=== PATIENT | female | born 1970 | race Caucasian/White ===

== ENCOUNTER 2021-03-13 13:01 | Outpatient (CLI) | payer BC, SELFPAY ==
--- NOTE | ~2021-03-13 | CT_ITS ---
EXAMINATION: CT abdomen pelvis w con EXAM DATE: 03/13/2021 13:35 INDICATION: R10.9 - Unspecified abdominal pain. Right lower quadrant abdominal pain. Symptoms one day . TECHNIQUE: Spiral CT of the abdomen and pelvis was performed following intravenous injection of 100 m L Omnipaque 350. Axial, coronal and sagittal images of the abdomen and pelvis were reviewed. The do se-length product (DLP) for this examination was 262.98 mGy-cm. The exposure was tailored according to patient size (auto mA exposure control), and iterative reconstruction (ASIR) was used as additiona l dose reduction technique. Comparison is made to prior examination from 01/02/2015. FINDINGS: The liver, spleen, adrenal glands and pancreas are unremarkable. Gallbladder is unremarkab le. No biliary obstruction. Portal and splenic veins are patent. Kidneys enhance symmetrically. T here is no hydronephrosis. Calcifications in the pelvis are believed to be phleboliths. The uterus and ovaries are unremarkable, no adnexal mass. The bladder is unremarkable. There is no retroperito neil or pelvic lymphadenopathy. The appendix is normal. The stomach and small bowel are unremarkable. There is moderate amount of c olonic stool. No free intraperitoneal gas. The heart is normal in size. There are no pericardial or pleural effusions. The lung bases are unremarkable. The bones are unremarkable. IMPRESSION: 1. No acute intra-abdominal findings. Reviewed, dictated and finalized at location B. [facility] [facility]
[2021-03-13 15:03] LABS: Basophils Percent Auto 0.5 % (0.2-1.2); Eosinophils Percent Auto 0.5 % (0-4.4); Hematocrit 42.7 % (37.0-47.0); Hemoglobin 14.3 g/dL (12.0-15.0); Immature Granulocyte Absolute 0.02 K/mm3 (0.00-0.031); Immature Granulocyte Percent A 0.4 % (0-0.5); Lymphocytes Absolute Auto 0.69 K/mm3 (0.9-3.2); Lymphocytes Percent Auto 12.1 % (18.3-44.2); Mean Corpuscular HGB Conc 33.5 g/dl (32-36); Mean Corpuscular Hemoglobin 29.9 pg (26-34); Mean Corpuscular Volume 89.3 fl (80-100); Mean Platelet Volume 11.2 fl (7.4-10.4); Monocytes Absolute Auto 0.3 K/mm3 (0.1-0.6); Monocytes Percent Auto 5.6 % (2.6-8.5); Neutrophils Absolute Auto 4.6 K/mm3 (1.3-6.7); Neutrophils Percent Auto 80.9 % (45.5-73.1); Platelet Count Result 192 k/mm3 (150-375); Red Blood Count 4.78 M/mm3 (4.2-5.4); Red Cell Distribution Width 13.8 % (11.5-14.5); White Blood Count 5.7 K/mm3 (4.5-10.0)
[2021-03-13 15:15] LABS: Alanine Aminotransferase 13 U/L (4-35); Albumin Level 4.3 g/dL (3.5-5.1); Alkaline Phosphatase 74 U/L (38-126); Amylase 82 U/L (30-110); Anion Gap 8 mmol/L (8-16); Aspartate Amino Transferase 24 U/L (14-36); Bilirubin,Total 1.1 mg/dL (0.2-1.3); Blood Urea Nitrogen 7 mg/dL (7-17); Calcium 9.2 mg/dL (8.4-10.2); Carbon Dioxide 25 mmol/L (22-30); Chloride 104 mmol/L (98-107); Estimated Glomerular Filt Rate > 60; Glucose 101 mg/dL (65-110); Lipase 75 U/L (23-300); Potassium 4.1 mmol/L (3.4-5.0); Sodium 137 mmol/L (137-145)
== END 2021-03-13 13:02 | disposition home or self-care (01) ==
PROVIDERS: PCP Family Medicine; Visit Provider Family Medicine
DX: R10.9 Unspecified abdominal pain (principal)
CPT/HCPCS: 36415; 74177; 80053; 82150; 83690; 85025; Q9967

== ENCOUNTER 2021-05-30 13:50 | Emergency (ER) | payer BC, SELFPAY ==
--- NOTE | ~2021-05-30 | XR_ITS ---
XR chest 2V DATE: 05/30/2021 14:25 INDICATION: Cough, congestion TECHNIQUE: 2 views COMPARISON: None FINDINGS: Normal heart size. No hilar or mediastinal enlargement. No pulmonary infiltrate or consolid ation, pleural effusion or pulmonary vascular congestion or pneumothorax is evident. There is a radiopaque density in the lower outer right breast. IMPRESSION: No active cardiopulmonary disease Reviewed, dictated and finalized at location A. 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
[2021-05-30 13:56] VITALS: BP 137/93; PULSE 90; RESP 18; TEMP 37.3; O2SAT 100
--- NOTE | 2021-05-30 14:12 | ED.URI ---
HPI - URI/Sore Throat General Chief Complaint: Upper Respiratory Infection Stated Complaint: Fever,Cough,Sore Throat Time Seen by Provider: 05/30/21 14:12 Source: patient Mode of arrival: ambulatory Limitations: no limitations History of Present Illness HPI Narrative: 51 yo F presents with c/o cough, chest congestion, intermitent low grade fever for 4 days. Was seen at [facility] urgent care and told she had bronchitis. had negative covid and flu swab. Given tessalon pearle, albuterol and mucinex but has not started meds because she did not think they would help. Denies SOB. Reports some muscular pain from coughing. All systems reviewed and negative except as noted above. Related Data Allergies Allergy/AdvReac Type Severity Reaction Status Date / Time cephalexin Allergy Intermediate Diarrhea Verified 05/30/21 15:12 erythromycin base Allergy Intermediate Diarrhea Verified 05/30/21 15:12 amoxicillin Allergy Mild Hives Verified 05/30/21 15:12 cefaclor Allergy Mild Hives Verified 05/30/21 15:12 oseltamivir Allergy Mild nausea Verified 05/30/21 15:12 Sulfa (Sulfonamide Allergy Mild Hives Verified 05/30/21 15:12 Antibiotics) azithromycin AdvReac Intermediate SEVERE Verified 05/30/21 15:12 ABDOMINAL ISSUES CEPHALEXIN MONOHYDRATE AdvReac Intermediate Diarrhea Uncoded 05/30/21 15:12 Review of Systems Review of Systems: CONSTITUTIONAL: Reports low grade fever. Denies chills, or sweats. EYES: Denies visual changes, redness, or discharge. ENT: Denies rhinorrhea, congestion, sore throat, or otalgia. CARDIOVASCULAR: Denies chest pain, palpitations, or edema. RESPIRATORY: Reports cough. Denies dyspnea. GASTROINTESTINAL: Denies abdominal pain, nausea, vomiting, or diarrhea. GENITOURINARY: Denies dysuria or hematuria. SKIN: Denies rash or itching. MUSCULOSKELETAL: Denies back pain, joint pain, or myalgia. NEUROLOGIC: Denies headache, numbness, or weakness. PSYCHIATRIC: Denies anxiety or depression. All other systems reviewed are negative, except as documented in HPI. 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 There is no relevant family history pertinent to the presenting complaint. Exam Narrative: GENERAL: This is a well-nourished, well-developed patient, in no apparent distress. HEAD: normocephalic, atraumatic. EYES: PERRL. Sclera clear/white. Vision is grossly intact. EARS: External ears normal, auditory canals clear and without drainage, TMs normal without perforation. Hearing grossly intact. NOSE: External nose normal with no obvious nasal discharge, nares without redness, no rhinorrhea. THROAT: Mucous membranes moist, posterior pharynx clear. NECK: Neck supple, non-tender without lymphadenopathy, masses or thyromegaly. CARDIOVASCULAR: Regular rate and rhythm without murmurs, gallops, or rubs. RESPIRATORY: Rhonchi to lower lung [place] on auscultation. Breath sounds equal bilaterally. No wheezes, rales, or rhonchi. GASTROINTESTINAL: Abdomen soft, non-tender, nondistended. Bowel soun
== END 2021-05-30 14:39 | disposition home or self-care (01) ==
PROVIDERS: Emergency Provider Nurse Practitioner Family; PCP Family Medicine
DX: J06.9 Acute upper respiratory infection, unspecified (principal)
CPT/HCPCS: 71046; 87081; 87880; 99213; G0463

== ENCOUNTER 2021-12-17 15:22 | Emergency (ER) | payer BC, SELFPAY ==
[2021-12-17 15:33] VITALS: BP 129/82; PULSE 83; RESP 16; TEMP 37.3; O2SAT 98
--- NOTE | 2021-12-17 16:07 | ED.SKABFB ---
HPI - Skin/Abscess/Foreign Bdy General Chief complaint: Skin/Abscess/Foreign Body Stated complaint: Rash Time Seen by Provider: 12/17/21 16:00 History of Present Illness HPI narrative: Hortencia Spencer is a 51 yo female with no PMH who comes to [facility] with complaints of rash on her face and left torso after pulling weeds yesterday. She states she is very allergic to different yard plants but did not realize that she was in something like poison lavinia until after she dog pulled the plant she tried to wash her hands and tools that she used but she still is breaking out into a rash and she states it is spreading Related Data Home Medications Medication Instructions Recorded Confirmed estradiol 0.0375 mg/24 hr 0.375 mg DIRECTED 12/17/21 12/17/21 semiweekly transdermal patch progesterone micronized 100 mg 100 mg HS 12/17/21 12/17/21 capsule Allergies Allergy/AdvReac Type Severity Reaction Status Date / Time cephalexin Allergy Intermediate Diarrhea Verified 12/17/21 15:36 erythromycin base Allergy Intermediate Diarrhea Verified 12/17/21 15:36 amoxicillin Allergy Mild Hives Verified 12/17/21 15:36 cefaclor Allergy Mild Hives Verified 12/17/21 15:36 oseltamivir Allergy Mild nausea Verified 12/17/21 15:36 Sulfa (Sulfonamide Allergy Mild Hives Verified 12/17/21 15:36 Antibiotics) gluten Allergy Nausea and Verified 12/17/21 16:11 Vomiting azithromycin AdvReac Intermediate SEVERE Verified 12/17/21 15:36 ABDOMINAL ISSUES CEPHALEXIN MONOHYDRATE AdvReac Intermediate Diarrhea Uncoded 12/17/21 15:36 Review of Systems Review of Systems: CONSTITUTIONAL: Denies fever, chills, sweats. EYES: Denies visual changes, redness, discharge. ENT: Denies rhinorrhea, congestion, sore throat, otalgia. CARDIOVASCULAR: Denies chest pain, palpitations, edema. RESPIRATORY: Denies dyspnea, wheezing, cough GASTROINTESTINAL: Denies abdominal pain, nausea, vomiting, diarrhea. GENITOURINARY: Denies dysuria, hematuria, abnormal discharge SKIN: Contact dermatitis to left face and left torso NEUROLOGIC: Denies numbness, or focal weakness. PSYCHIATRIC: Denies anxiety or depression. 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 There is no relevant family history pertinent to the presenting complaint. Exam Narrative: GENERAL: This is a well-nourished, well-developed patient, in mild distress. HEAD: normocephalic, atraumatic. EYES: Sclera clear/white. Vision is grossly intact. EARS: External ears normal, Hearing grossly intact. NOSE: External nose normal without nasal discharge, nares without redness, no rhinorrhea. THROAT: Mucous membranes moist, NECK: Neck supple, non-tender CARDIOVASCULAR: Regular rate and rhythm without murmurs, gallops, or rubs. RESPIRATORY: Clear to auscultation. Breath sounds equal bilaterally. No wheezes, rales, or rhonchi. GASTROINTESTINAL: not done SKIN: warm, intact with red papular rash on face neck and left torso with spots on her arms NEURO: awake, alelaurie
[2021-12-17] MEDS: methylPREDNISolone SOD SUCC 125 MG VIAL IM (16:24)
== END 2021-12-17 16:58 | disposition home or self-care (01) ==
PROVIDERS: Emergency Provider Nurse Practitioner; PCP Family Medicine
DX: L25.9 Unspecified contact dermatitis, unspecified cause (principal)
CPT/HCPCS: 96372; 99213; G0463; J2930

== ENCOUNTER 2022-04-21 11:05 | Emergency (ER) | payer BC, SELFPAY ==
[2022-04-21 11:31] VITALS: BP 131/90; PULSE 86; RESP 18; TEMP 36.4; O2SAT 100
--- NOTE | 2022-04-21 11:35 | ED.URI ---
HPI - URI/Sore Throat General Chief Complaint: Upper Respiratory Infection Stated Complaint: Headache Time Seen by Provider: 04/21/22 11:24 Source: patient Mode of arrival: ambulatory Limitations: no limitations History of Present Illness HPI Narrative: Patient presents today complaining of sinus pressure and headache since yesterday with nasal congestion. Denies sore throat, fever, vision change, dizziness, photophobia, or any additional symptoms. She currently rates her headache 5/10 and has been taking Aleve, Benadryl, and NyQuil without relief. It is states she does have history of migraines, but these are typically located in the frontal area and she can usually get them to go away with the previously mentioned medications and rest. Her current headache is located in the crown of her head. 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 Related Data Allergies Allergy/AdvReac Type Severity Reaction Status Date / Time azithromycin AdvReac Intermediate SEVERE Verified 04/21/22 11:16 ABDOMINAL ISSUES cephalexin AdvReac Intermediate Diarrhea Verified 04/21/22 11:16 erythromycin base AdvReac Intermediate Diarrhea Verified 04/21/22 11:16 gluten AdvReac Intermediate Nausea and Verified 04/21/22 11:16 Vomiting amoxicillin AdvReac Mild Hives Verified 04/21/22 11:16 cefaclor AdvReac Mild Hives Verified 04/21/22 11:16 oseltamivir AdvReac Mild nausea Verified 04/21/22 11:16 Sulfa (Sulfonamide AdvReac Mild Hives Verified 04/21/22 11:16 Antibiotics) CEPHALEXIN MONOHYDRATE AdvReac Intermediate Diarrhea Uncoded 04/21/22 11:16 Review of Systems Review of Systems: CONSTITUTIONAL: Denies body aches, fever, chills, or sweats. EYES: Denies visual changes, redness, or discharge. ENT: Denies rhinorrhea, sore throat, or otalgia.+ congestion CARDIOVASCULAR: Denies chest pain, palpitations, or edema. RESPIRATORY: Denies cough or dyspnea. GASTROINTESTINAL: Denies abdominal pain, nausea, vomiting, or diarrhea. GENITOURINARY: Denies dysuria or hematuria. SKIN: Denies rash, itching, or wounds. MUSCULOSKELETAL: Denies back pain, joint pain, or myalgia. NEUROLOGIC: Denies numbness, tingling, or weakness.+ headache PSYCH: Denies depression or anxiety. 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 Please see nursing chart for further information. There is no relevant family history pertinent to the presenting complaint Exam Narrative: GENERAL: Mildly ill-appearing, well-nourished, and in no acute distress. HEAD: Normocephalic, atraumatic. EYES: EOMI. PERRL. No redness or drainage. Conjunctivae normal. ENT: Mucous membranes pink and moist. Nares mildly congested. No rhinorrhea. TMs normal bilaterally. Throat normal. Uvula midline. NECK: Normal AROM. Supple. No lymphadenopathy. CHEST: No respiratory distress. Clear to auscultation.
== END 2022-04-21 11:53 | disposition home or self-care (01) ==
PROVIDERS: Emergency Provider Nurse Practitioner
DX: B34.9 Viral infection, unspecified (principal); Z20.822 Contact with and (suspected) exposure to COVID-19; F41.9 Anxiety disorder, unspecified
CPT/HCPCS: 87426; 87804; 99213; C9803; G0463

== ENCOUNTER 2022-12-14 16:50 | Emergency (ER) | payer BC, SELFPAY ==
[2022-12-14 17:00] VITALS: BP 144/94; PULSE 85; RESP 18; TEMP 37.2; O2SAT 99
--- NOTE | 2022-12-14 17:26 | ED.URI ---
HPI - URI/Sore Throat General Chief Complaint: Upper Respiratory Infection Stated Complaint: Sore Throat and Cough Time Seen by Provider: 12/14/22 16:52 Source: patient Mode of arrival: ambulatory Limitations: no limitations History of Present Illness HPI Narrative: 52-year-old female presents to [facility] with complaints of sore throat, cough, nasal congestion and sinus pressure for the past 7-10 days. Patient reports that she feels that her nonproductive cough has been worsening over the past 2 days. Patient has been taking [id number] DayQuil and NyQuil with minimal relief. 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 Patient denies fever, body aches, chills, nausea, vomiting or diarrhea. Patient is not a smoker. Patient denies recent travel. MD elicited complaint: cough and nasal congestion Onset (ago): day(s) (7-10) Able to tolerate fluids by mouth: Yes Exacerbating factors: nothing Relieving factors: nothing Treatments prior to arrival: cold medicine Related Data Home Medications Medication Instructions Recorded Confirmed escitalopram oxalate 10 mg tablet 10 mg PO DAILY 10/21/22 12/14/22 Allergies Allergy/AdvReac Type Severity Reaction Status Date / Time azithromycin AdvReac Intermediate SEVERE Verified 12/14/22 17:05 ABDOMINAL ISSUES cephalexin AdvReac Intermediate Diarrhea Verified 12/14/22 17:05 erythromycin base AdvReac Intermediate Diarrhea Verified 12/14/22 17:05 gluten AdvReac Intermediate Nausea and Verified 12/14/22 17:05 Vomiting amoxicillin AdvReac Mild Hives Verified 12/14/22 17:05 cefaclor AdvReac Mild Hives Verified 12/14/22 17:05 oseltamivir AdvReac Mild nausea Verified 12/14/22 17:05 Sulfa (Sulfonamide AdvReac Mild Hives Verified 12/14/22 17:05 Antibiotics) CEPHALEXIN MONOHYDRATE AdvReac Intermediate Diarrhea Uncoded 12/14/22 17:05 Review of Systems Constitutional: Constitutional: Denies chills, Denies fatigue, Denies fever(s) and Denies weakness ENT: Denies vertigo, Denies dizziness, Denies epistaxis, Reports nasal congestion and Denies sore throat Cardiovascular: Cardiovascular: Denies chest pain Respiratory: Respiratory: Reports cough, Denies dyspnea and Denies wheezing Gastrointestinal: Gastrointestinal: Denies diarrhea, Denies nausea and Denies vomiting Integumentary/Breasts: Skin/Breast: Denies pruritus, Denies erythema and Denies rash Neurologic: Denies dizziness, Denies syncope and Denies headache(s) [facility] Past Medical History Medical History Anxiety Seasonal allergies UTI (urinary tract infection) Surgical History Surgical History History of lumpectomy of left breast Family History Family History Father Hypertension Sibling Asthma Mother Family history of elevated blood lipids Family history of kidney disease Social History Social History Smoking status: Never smoker Second hand tobacco smoke exposure: No Alcohol intake: never Substance use: never Substance use type: does not use Lack of Transportation: No Lack of Food: Never True Current Housing: I Have Housing Concerned About Future Housing: No Difficulty Paying Gas/Electric Bills: No Difficulty Paying for Meds: No Currently Unemployed: No Education: Master's Degree or Higher Difficulty w/ Childcare or Family Care: No Living arrangements: with family 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 There is no relevant family histor
== END 2022-12-14 17:34 | disposition home or self-care (01) ==
PROVIDERS: Emergency Provider Nurse Practitioner Family; PCP Emergency Medicine
DX: J06.9 Acute upper respiratory infection, unspecified (principal); Z20.822 Contact with and (suspected) exposure to COVID-19; F41.9 Anxiety disorder, unspecified
CPT/HCPCS: 87081; 87426; 87880; 99213; C9803; G0463

== ENCOUNTER 2023-05-18 18:27 | Emergency (ER) | payer BC, SELFPAY ==
--- NOTE | 2023-05-18 18:34 | ED.SKABFB ---
HPI - Skin/Abscess/Foreign Bdy General Chief complaint: Skin/Abscess/Foreign Body Stated complaint: Arm and Back Rash Time Seen by Provider: 05/18/23 18:35 Source: patient Mode of arrival: ambulatory Limitations: no limitations History of Present Illness HPI narrative: Setphanie is a 53-year-old female patient presenting to the clinic today with complaints of a rash on the right side under the right breast, axilla, and right back. She reports rash has been there for 3-4 weeks however has seemed gotten worse over the last 2 days. Denies any fever or chills. States that the rash is irritated and painful. No drainage from the rash Related Data Home Medications Medication Instructions Recorded Confirmed escitalopram oxalate 10 mg tablet 10 mg PO DAILY 10/21/22 05/18/23 Allergies Allergy/AdvReac Type Severity Reaction Status Date / Time azithromycin AdvReac Intermediate SEVERE Verified 05/18/23 18:36 ABDOMINAL ISSUES cephalexin AdvReac Intermediate Diarrhea Verified 05/18/23 18:36 erythromycin base AdvReac Intermediate Diarrhea Verified 05/18/23 18:36 gluten AdvReac Intermediate Nausea and Verified 05/18/23 18:36 Vomiting amoxicillin AdvReac Mild Hives Verified 05/18/23 18:36 cefaclor AdvReac Mild Hives Verified 05/18/23 18:36 oseltamivir AdvReac Mild nausea Verified 05/18/23 18:36 Sulfa (Sulfonamide AdvReac Mild Hives Verified 05/18/23 18:36 Antibiotics) CEPHALEXIN MONOHYDRATE AdvReac Intermediate Diarrhea Uncoded 05/18/23 18:37 Review of Systems Review of Systems: Pertinent positives per HPI. Patient denies any fever, chills,headache, visual changes, dizziness, cough, shortness of breath, chest pain, palpitations, nausea, vomiting, diarrhea, constipation, abdominal pain, or any urinary issues. [facility] Past Medical History Medical History Anxiety Seasonal allergies UTI (urinary tract infection) Surgical History Surgical History History of lumpectomy of left breast Family History Family History Father Hypertension Sibling Asthma Mother Family history of elevated blood lipids Family history of kidney disease Social History Social History Smoking status: Never smoker Second hand tobacco smoke exposure: No Alcohol intake: never Substance use: never Substance use type: does not use Lack of Transportation: No Lack of Food: Never True Current Housing: I Have Housing Concerned About Future Housing: No Difficulty Paying Gas/Electric Bills: No Difficulty Paying for Meds: No Currently Unemployed: No Education: Master's Degree or Higher Difficulty w/ Childcare or Family Care: No Living arrangements: with family 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 There is no relevant family history pertinent to the patient complaint. Exam Narrative: General: Well-developed, well nourished, in no apparent distress Head: Normocephalic, atraumatic. Cardio: Regular rate and rhythm, s1 and s2 normal, no murmur appreciated. Resp: Clear to auscultation bilaterally, no rhonchi, rales, wheezing or rubs. Integumentary: [place], warm, and dry, intact without lesion, red raised erythemic base rash with mild tenderness to palpation, no obvious vesicular lesions present Course Course Emergency Course: Portions of this record may have been created with voice recognition software. Level of Care: Express Care Visit Vital Signs Vital signs: Vital signs reviewe
[2023-05-18 18:35] VITALS: BP 143/91; PULSE 95; RESP 16; TEMP 36.6; O2SAT 99
== END 2023-05-18 18:58 | disposition home or self-care (01) ==
PROVIDERS: Emergency Provider Nurse Practitioner Family; PCP Emergency Medicine
DX: L30.9 Dermatitis, unspecified (principal); F41.9 Anxiety disorder, unspecified
CPT/HCPCS: 99213; G0463

== ENCOUNTER 2024-02-22 13:26 | Emergency (ER) | payer BC, SELFPAY ==
--- NOTE | ~2024-02-22 | XR_ITS ---
XR chest 2V Ordering provider: Brianna Jeffery APRN History: 53 years Female with . cough . Comparison: None. FINDINGS: MEDIASTINUM: The cardiac silhouette is not enlarged. Prominent left hilum which may be due to enlarge d lymph nodes. LUNGS: No effusions or pneumothorax. Prominent bronchovascular markings with possible minimal infiltr ate in the lower lobes. OTHER: No free air under the diaphragm. IMPRESSION: Prominent bronchovascular markings with possible minimal infiltrate in the lower lobes which may isabel latonia early pneumonia. Follow-up is advised. Reviewed, dictated and finalized at location A. TRIMMER IMPRESSION: Prominent bronchovascular markings with possible minimal infiltrate in the lowe r lobes which may indicate early pneumonia. Follow-up is advised.
[2024-02-22 13:32] VITALS: BP 123/84; PULSE 77; RESP 16; TEMP 36.2; O2SAT 98
--- NOTE | 2024-02-22 13:44 | ED.URI ---
HPI - URI/Sore Throat General Chief Complaint: Upper Respiratory Infection Stated Complaint: cough Time Seen by Provider: 02/22/24 14:05 Source: patient, RN notes reviewed and old records reviewed Mode of arrival: ambulatory Limitations: no limitations History of Present Illness HPI Narrative: patient treated last month for pneumonia presents with complaints of cough that improved with antibiotic therapy, but over the past couple of weeks has worsened again. She reports occasional wheezing, shortness of breath with activity. Cough has become productive again. She reports intermittent fevers, sore throat with cough. She is also concerned about a laceration to the right 3rd finger. Reports that she cut the tip of her finger on a glass just prior to arrival. No active bleeding on arrival. Reports tetanus is up-to-date. Denies other injury or trauma Related Data Home Medications Medication Instructions Recorded Confirmed escitalopram oxalate 10 mg tablet 10 mg PO DAILY 10/21/22 02/22/24 Allergies Allergy/AdvReac Type Severity Reaction Status Date / Time azithromycin AdvReac Intermediate SEVERE Verified 02/22/24 13:35 ABDOMINAL ISSUES cephalexin AdvReac Intermediate Diarrhea Verified 02/22/24 13:35 erythromycin base AdvReac Intermediate Diarrhea Verified 02/22/24 13:35 gluten AdvReac Intermediate Nausea and Verified 02/22/24 13:35 Vomiting amoxicillin AdvReac Mild Hives Verified 02/22/24 13:35 cefaclor AdvReac Mild Hives Verified 02/22/24 13:35 oseltamivir AdvReac Mild nausea Verified 02/22/24 13:35 Sulfa (Sulfonamide AdvReac Mild Hives Verified 02/22/24 13:35 Antibiotics) CEPHALEXIN MONOHYDRATE AdvReac Intermediate Diarrhea Uncoded 02/22/24 13:35 Review of Systems Review of Systems: All systems reviewed & are unremarkable except as noted in HPI and below Constitutional: Constitutional: Reports as per HPI, Reports no additional constitutional complaints and Reports lethargy ENT: Reports system reviewed and no additional complaints, except as documented Cardiovascular: Cardiovascular: Reports no additional cardiovascular complaints Respiratory: Respiratory: Reports no additional respiratory complaints, Reports change in phlegm color, Reports chest congestion, Reports cough, Reports excessive phlegm production, Reports dyspnea on exertion and Reports wheezing Gastrointestinal: Gastrointestinal: Reports no additional gastrointestinal complaints Integumentary/Breasts: Skin/Breast: Reports system reviewed and no additional complaints, except as docu, Reports as per HPI and Reports wounds [facility] Past Medical History Medical History Anxiety Seasonal allergies UTI (urinary tract infection) Surgical History Surgical History History of lumpectomy of left breast Family History Family History Father Hypertension Sibling Asthma Mother Family history of elevated blood lipids Family history of kidney disease Social History Social History Smoking status: Never smoker Second hand tobacco smoke exposure: No Alcohol intake: never Substance use: never Substance use type: does not use Lack of Transportation: No Lack of Food: Never True Current Housing: I Have Housing Concerned About Future Housing: No Difficulty Paying Gas/Electric Bills: No Difficulty Paying for Meds: No Currently Unemployed: No Education: Master's Degree or Higher Difficulty w/ Childcare or Family Care: No Living arrangements: with family 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 There is no relevant family history pertinent to the patient complaint. Exam Const: General: cooperative, no acute distress, alert and awake Orientation/consciousness: oriented to person, oriented to place and oriented to time HENMT: Head: normal to inspection Mouth: Yes moist mucous membranes Resp: Effort & Inspection: normal respiratory effort and able to speak in complete sentences Auscultation: clear to auscultation bilaterally, no crackles, no rales, no rhonchi, no wheezes and diminished lung sounds bilateral in the lower lung [place] Cardio: Palpation: normal PMI Rate: regular rate Rhythm: regular rhythm Heart sounds: S1 normal heart sound present and S2 normal heart sound present Skin: Trauma: laceration right distal 3rd finger linear and superficial Neuro: General: oriented to person, oriented to place and oriented to time Cranial nerves: Yes CN's II-XII intact bilaterally Psych: Appearance: grossly normal Thought process: Normal thought process present Insight: Good insight present (Psych) Judgement: Good judgement present (Psych) Course Course Level of Care: Express Care Visit Vital Signs Vital signs: Vital Signs Temperature 97.2 F L 02/22/24 13:32 Pulse Rate 77 02/22/24 13:32 Respiratory Rate 16 02/22/24 13:32 Blood Pressure 123/84 02/22/24 13:32 Pulse Oximetry 98 02/22/24 13:32 Oxygen Delivery Room Air 02/22/24 13:32 Temperature 97.2 F L 02/22/24 13:32 Pulse Rate 77 02/22/24 13:32 Respiratory Rate 16 02/22/24 13:32 Blood Pressure 123/84 02/22/24 13:32 Pulse Oximetry 98 02/22/24 13:32 Oxygen Delivery Room Air 02/22/24 13:32 Reviewed Procedures Laceration Laceration 1: Date: 02/22/24 Time: 14:30 Site: hand Side (If applicable): right Size (cm): 1 Description: linear Depth: simple, single layer Pre-repair: irrigated ====== Skin Level ====== Skin layer closed with: dermabond and steri strips ====== Subcutaneous Layer ====== ====== Muscle Layer ====== ====== Tendon Layer ====== MDM - URI/Sore Throat MDM Narrative Medical decision making narrative: patient with multiple allergies presents with pneumonia. She did not have chest x-ray initially, so unsure if it is resolving, or worsening as patient feels it is. Would prefer to try azithromycin, but patient reports that she is severely intolerant of this. Will do another 7 days of doxycycline. Add steroids, bronchodilators. Very superficial laceration to right 3rd finger repaired with Steri-Strips and wound adhesive. No complications. Follow with primary care provider. Discharge instructions reviewed with patient, as well as provided in writing per nursing staff. The instructions also include specific and strict return/GO TO THE ER as well as f/u information. All questions have been answered, and the patient deny any further questions with discharge and discharge plan. Some parts of this dictation were generated by voice recognition software and may contain typographical and/or grammatical inaccuracies. Differential Diagnosis Differential diagnosis: Likely upper respiratory infection, otitis media, viral infection, bronchitis, influenza and pharyngitis Medical Records Attestation: I reviewed the patient's medical records. Imaging Data Attestation: I personally reviewed and interpreted this imaging study as follows: My impression: BLL pna Radiologist's impression: [facility] [address] [place] [id number] XRay Report Signed Patient: Hortencia Spencer : 1970 MR#: [id number] Age: 53 Acct:[id number] Loc: [facility] ADM Date: 02/22/24Attending Dr: Ordering Physician: Brianna Jeffery FNP Date of Service: 02/22/24 Procedure(s): XR chest 2V Accession Number(s): [id number] cc: Brianna Jeffery FNP; Gerardo Jc MD~ XR chest 2V Ordering provider: Brianna Jeffery APRN History: 53 years Female with . cough . Comparison: None. FINDINGS: MEDIASTINUM: The cardiac silhouette is not enlarged. Prominent left hilum which may be due to enlarged lymph nodes. LUNGS: No effusions or pneumothorax. Prominent bronchovascular markings with possible minimal infiltrate in the lower lobes. OTHER: No free air under the diaphragm. IMPRESSION: Prominent bronchovascular markings with possible minimal infiltrate in the lower lobes which may indicate early pneumonia. Follow-up is advised. Reviewed, dictated and finalized at location A. T ADMINISTRATIVE ASSISTANT Dictated By: Parish Stoner MD 02/22/24 0765 Signed By: <Electronically signed by Parish Stoner MD in OV> Discharge Plan Discharge Clinical Impression: Laceration Pneumonia Qualifiers: Pneumonia type: due to unspecified organism Laterality: bilateral Lung location: lower lobe of lung Qualified Code(s): J18.9 - Pneumonia, unspecified organism Patient Disposition: Home, Self-Care Condition: Stable Instructions: Antibiotic Form, Skin Adhesive Care (ED), Pneumonia (ED), Steristrips (ED) Additional Instructions: Follow-up with primary care provider. Emergency department for new or worsening symptoms Patient Language: Yakut Prescriptions: New doxycycline hyclate 100 mg tablet 100 mg PO BID Qty: 14 0RF prednisone 50 mg tablet 50 mg PO DAILY Qty: 5 0RF albuterol sulfate [Ventolin HFA] 90 mcg/actuation HFA aerosol inhaler 2 puff inhalation QID PRN (Reason: shortness of breath or wheezing) Qty: 8.5 0RF No Action escitalopram oxalate 10 mg tablet 10 mg PO DAILY Follow-up/Referrals: Gerardo Jc MD [Primary Care Provider] - 2 Weeks Stand Alone Forms: Work/School Release IP Time of Disposition: 14:30
[2024-02-22 14:17] LABS: EDSTREPNEGPOS1 Negative (Negative)
[2024-02-22 14:18] LABS: EDCOVIDSCREEN Negative (Negative); EDINFLUASCREEN Negative (Negative); EDINFLUBSCREEN Negative (Negative)
== END 2024-02-22 14:31 | disposition home or self-care (01) ==
PROVIDERS: Emergency Provider Nurse Practitioner Family; PCP Emergency Medicine
DX: S61.212A Laceration without foreign body of right middle finger without damage to nail, initial encounter (principal); W25.XXXA Contact with sharp glass, initial encounter; J18.9 Pneumonia, unspecified organism; Z20.822 Contact with and (suspected) exposure to COVID-19; F41.9 Anxiety disorder, unspecified
CPT/HCPCS: 12001; 71046; 87081; 87426; 87804; 87880; 99213; G0463

== ENCOUNTER 2024-07-28 13:15 | Emergency (ER) | payer BC, SELFPAY ==
--- NOTE | 2024-07-28 13:20 | ED_ITS ---
HPI - URI/Sore Throat General Chief Complaint: Upper Respiratory Infection Stated Complaint: Sinus Infection History of Present Illness HPI Narrative: This is a 54-year-old female patient presents to the [facility] with complaints of maxillary sinus symptoms started 10 days ago have progressed to sore throat stuffy nose and nonproductive cough. Patient reports a history of multiple allergies. She states that whenever she gets infections like this she ends up with bronchitis that causes coughing for months. Patient developed pneumonia in January as a result. She has multiple allergies and usually is prescribed doxycycline when these symptoms progressed longer than 10 days. Patient denies fever chills. She states axillary pain as well as pain to her upper teeth. Onset (ago): day(s) (10) Consistency: constant Severity: moderate Pain scale (0-10): 4 Description of mucous: green and purulent Able to tolerate fluids by mouth: Yes Exacerbating factors: exertion and leaning forward Relieving factors: OTC cold medicine and nasal spray Context: sick contacts Associated symptoms: rhinorrhea, nasal congestion, sore throat, cough and other ( Upper dentalgia) Related Data Home Medications ?Medication ?Instructions ?Recorded ?Confirmed ?Last Taken ?Type escitalopram oxalate 10 mg tablet 10 mg PO DAILY 10/21/22 02/22/24 Unknown History Allergies Allergy/AdvReac Type Severity Reaction Status Date / Time amoxicillin Allergy Mild Hives Verified 07/28/24 13:52 cefaclor Allergy Mild Hives Verified 07/28/24 13:52 Sulfa (Sulfonamide Allergy Mild Hives Verified 07/28/24 13:52 Antibiotics) azithromycin AdvReac Intermediate SEVERE Verified 07/28/24 13:52 ABDOMINAL ISSUES cephalexin AdvReac Intermediate Diarrhea Verified 07/28/24 13:52 erythromycin base AdvReac Intermediate Diarrhea Verified 07/28/24 13:52 gluten AdvReac Intermediate Nausea and Verified 07/28/24 13:52 Vomiting oseltamivir AdvReac Mild nausea Verified 07/28/24 13:52 Review of Systems Review of Systems: All systems reviewed & are unremarkable except as noted in HPI and below PMFSH Past Medical History Medical History Anxiety UTI (urinary tract infection) Seasonal allergies Surgical History Surgical History History of lumpectomy of left breast Family History Family History Father Hypertension Sibling Asthma Mother Family history of elevated blood lipids Family history of kidney disease Social History Social History Smoking status: Never smoker Second hand tobacco smoke exposure: No Alcohol intake: never Substance use: never Substance use type: does not use Lack of Transportation: No Lack of Food: Never True Current Housing: I Have Housing Concerned About Future Housing: No Difficulty Paying Gas/Electric Bills: No Difficulty Paying for Meds: No Currently Unemployed: No Education: Master's Degree or Higher Difficulty w/ Childcare or Family Care: No Living arrangements: with family 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 HEAD: Normocephalic, atraumatic. ENT:? Mucous membranes moist. no gum erythema or swelling, posterior nasal drip noted, maxillary sinus tenderness to palpation no frontal or ethmoid sinus tenderness CHEST: Clear to auscultation.? No respiratory distress. nonproductive cough present HEART: Regular rate and rhythm. ? Normal peripheral pulses. SKIN: Warm dry normal color NEURO: Alert and oriented x3. PSYCH: Normal mood and affect Course Course Emergency Course: Symptoms ongoing for 10 days. Deferred any testing due to timeframe since antigen testing would be negative by now even if symptoms started from a testable condition. Level of Care: Express Care Visit Vital Signs Vital signs: Vital Signs Temperature 36.6 C 07/28/24 13:21 Pulse Rate 77 07/28/24 13:21 Respiratory Rate 18 07/28/24 13:21 Blood Pressure 135/95 H 07/28/24 13:21 Pulse Oximetry 97 07/28/24 13:21 Oxygen Delivery Room Air 07/28/24 13:21 Temperature 36.6 C 07/28/24 13:21 Pulse Rate 77 07/28/24 13:21 Respiratory Rate 18 07/28/24 13:21 Blood Pressure 135/95 H 07/28/24 13:21 Pulse Oximetry 97 07/28/24 13:21 Oxygen Delivery Room Air 07/28/24 13:21 MDM - URI/Sore Throat MDM Narrative Medical decision making narrative: Considered treating with symptomatic care only but patient has already been doing this for the past 10 days since symptoms started. Decided to treat with steroids and antibiotics that patient has received relief with previously. Testing deferred as above. Medical Records Attestation: I reviewed the patient's medical records. Medical records narrative: Prior symptoms in [address], did not find records regarding pneumonia in January Discharge Plan Discharge Clinical Impression: Acute bacterial sinusitis Patient Disposition: Home Condition: Stable Instructions: Antibiotic Form, Sinusitis (ED) Additional Instructions: Use nasal steroid (Flonase) 2 squirts per nostril twice a day until symptoms resolved. May consider adding Claritin, Radha, Zyrtec or Xyzal in case there is an allergy component to this as well. Benadryl can be used but may cause adverse side effects. Prescription for 5 day burst of prednisone 40 mg daily and prescription for twice daily doxycycline for bacterial sinusitis (symptoms longer than 10 days) Patient Language: Kazakh Prescriptions: New prednisone 20 mg tablet 40 mg PO DAILY Qty: 10 0RF doxycycline hyclate 100 mg capsule 100 mg PO BID Qty: 14 0RF No Action escitalopram oxalate 10 mg tablet 10 mg PO DAILY Follow-up/Referrals: PHYSICIAN,HAND TACKER [Primary Care Provider] - Time of Disposition: 13:48
[2024-07-28 13:21] VITALS: BP 135/95; PULSE 77; RESP 18; TEMP 36.6; O2SAT 97
== END 2024-07-28 13:51 | disposition home or self-care (01) ==
PROVIDERS: Emergency Provider Nurse Practitioner
DX: J01.90 Acute sinusitis, unspecified (principal); F41.9 Anxiety disorder, unspecified
CPT/HCPCS: 99213; G0463